=== PATIENT | female | born 1965 | race African-American/Black ===

== ENCOUNTER 2017-08-07 15:04 | Outpatient (CLI) | payer BC ==
--- NOTE | 2017-08-07 18:59 | MRI ---
MRI LUMBAR SPINE NONCONTRAST: DATE: 08/07/17 HISTORY: 52-year-old with right lumbar radiculopathy with pain in the right hip, for five months. Weakness in the right lower extremity, R53.1. R10.31. COMPARISON: No prior lumbar spine MRIs or CTs. FINDINGS: The plain radiograph of 07/24/17 demonstrates five lumbar type vertebrae. The vertebral body heights are maintained. No major spondylolisthesis. No major pathology of perivertebral spaces. T12-L1: Normal. Conus medullaris terminates at mid L1. L1-2: Disc desiccation without significant displaced narrowing. No central or neural foraminal steno sis. L2-3: Disc desiccation without significant disc space narrowing. No central or neural foraminal sten osis. Mild bilateral degenerative facet hypertrophy. L3-4: Mild disc bulge. Disc desiccation without high grade disc space narrowing. No significant medardo tral spinal canal stenosis. Prominent posterior epidural fat pad results in mild to moderate thecal sac stenosis. No neural foraminal stenosis. L4-5: Disc space narrowing, severe on the right side, with right sided Modic type II changes. The di sc space narrowing is moderate on the left side. Minimal degenerative retrolisthesis of L4 on L5. Pr ominent diffuse disc bulge. Bilateral moderate degenerative facet changes. Mild bilateral neural for aminal stenosis. Mild thecal sac stenosis. No significant central spinal canal stenosis. L5-S1: Mild left sided Modic type I changes. Severe narrowing of the left side of the disc space. Mi ld narrowing of the central and right side of the disc space. Mild diffuse disc bulge. No right side d neural foraminal stenosis. Mild left neural foraminal stenosis due to broad based left lateral and far lateral disc/osteophytic bar complex. No central stenosis. Moderate right degenerative facet ch anges. Mild to moderate left degenerative facet changes. IMPRESSION: 1. Lumbar spondylosis, consisting of moderate degenerative disc changes at L4-5 and L5-S1, and modest facet osteoarthrosis at various levels. 2. No severe central spinal canal stenosis, severe neural foraminal stenosis, or nerve root imp ingement, at any level. HUI Guzman POS: CECILIA
--- NOTE | 2017-08-07 19:25 | MRI ---
MRI OF THE RIGHT HIP WITHOUT CONTRAST: 08/07/17 INDICATION: Right hip pain. FINDINGS: There is a partial thickness articular surface tear involving the anterior to mid right gluteus medi us tendon with associated underlying subtrochanteric bursitis. The right gluteus minimus appears int act. The rectus femoris and hamstring origin appears within normal limits. The iliopsoas tendon appe ars within normal limits. There is mild to moderate degenerative arthrosis of the right hip with deg enerative fraying of the right acetabular labrum. No acute fracture is evidence. No pathologically e nlarged lymph nodes are noted. There is a small amount effusion. IMPRESSION: 1. Partial thickness articular surface tear of the anterior to mid right gluteus medius tendon at the level of its attachment with adjacent trochanteric bursitis. 2. Mild to moderate degenerative arthrosis of the right hip with degenerative fraying of the ac etabular labrum. POS: OFF
== END 2017-08-07 15:05 | disposition home or self-care (01) ==
LOC: MRI 15:04
PROVIDERS: ATTEND Family Medicine
DX: M25.551 Pain in right hip (principal); R53.1 Weakness; M54.31 Sciatica, right side; R10.31 Right lower quadrant pain; M70.60 Trochanteric bursitis, unspecified hip; T14.8 Other injury of unspecified body region; M47.816 Spondylosis without myelopathy or radiculopathy, lumbar region
CPT/HCPCS: 72148

== ENCOUNTER 2017-11-17 12:08 | Outpatient (CLI) | payer BC | END 2017-11-17 12:09 | disposition home or self-care (01) | LOC: BICMAMMO 12:08 | PROVIDERS: ATTEND Family Medicine | DX: Z12.31 Encounter for screening mammogram for malignant neoplasm of breast (principal) | CPT/HCPCS: 77063; 77067 ==

== ENCOUNTER 2020-10-22 13:19 | Outpatient (CLI) | payer BC ==
--- NOTE | 2020-10-22 15:36 | MMO ---
Bilateral MAMMO Bilat Screen [facility]. CLINICAL HISTORY: Patient is 55 years old and is seen for screening. The patient has no family history of breast cancer. The patient has no personal history of cancer. VIEWS: The views performed were: bilateral craniocaudal with tomosynthesis and bilateral mediolateral oblique with tomosynthesis. FILMS COMPARED: The present examination has been compared to prior imaging studies performed at [facility] on 04/29/2011, 05/01/2011 and 08/22/2016. This study has been interpreted with the assistance of computer-aided detection. MAMMOGRAM FINDINGS: There are scattered fibroglandular densities. There are no suspicious masses, suspicious calcifications, or new areas of architectural distortion. IMPRESSION: THERE IS NO MAMMOGRAPHIC EVIDENCE OF MALIGNANCY. A ROUTINE FOLLOW-UP MAMMOGRAM IN 1 YEAR IS RECOMMENDED. THE RESULTS OF THIS EXAM WERE SENT TO THE PATIENT. ACR BI-RADS Category 1 - Negative MAMMOGRAPHY NOTE: 1. A negative mammogram report should not delay a biopsy if a dominant of clinically suspicious mass is present. 2. Approximately 10% to 15% of breast cancers are not detected by mammography. 3. Adenosis and dense breasts may obscure an underlying neoplasm. Reported by: JONI GRAY MD Electonically Signed: [id number]
== END 2020-10-22 13:20 | disposition home or self-care (01) ==
LOC: BICMAMMO 13:19
PROVIDERS: ATTEND Physician Assistant Medical
DX: Z12.31 Encounter for screening mammogram for malignant neoplasm of breast (principal)
CPT/HCPCS: 77063; 77067

== ENCOUNTER 2022-04-22 14:12 | Outpatient (CLI) | payer BC | END 2022-04-22 14:13 | disposition home or self-care (01) | LOC: BICMAMMO 14:12 | PROVIDERS: ATTEND Student in an Organized Health Care Education/Training Program | DX: Z12.31 Encounter for screening mammogram for malignant neoplasm of breast (principal) | CPT/HCPCS: 77063; 77067 ==